=== PATIENT | male | born 1955 | race Caucasian/White ===

== ENCOUNTER 2020-09-25 15:09 | Emergency (ER) | payer MEDICARE, BC, SELFPAY ==
[2020-09-25 15:37] VITALS: BP 161/89; PULSE 59; RESP 14; TEMP 36.3; O2SAT 96; BMI 38.0
[2020-09-25 15:54] VITALS: BP 156/84; PULSE 60; RESP 20; O2SAT 97
--- NOTE | 2020-09-25 15:56 | XRR_ITS ---
PROCEDURE INFORMATION: Exam: XR Chest, 1 View Exam date and time: 09/25/2020 4:11 PM Age: 65 years old Clinical indication: Chest pain; Type not specified; Prior surgery TECHNIQUE: Imaging protocol: XR of the chest Views: 1 view. COMPARISON: CR Chest 2 views* [id number] 01/24/2014 8:00 AM FINDINGS: Lungs: Low lung volumes are seen. The lungs are otherwise clear Pleural space: Unremarkable. No pleural effusion. No pneumothorax. Heart/Mediastinum: Unremarkable. No cardiomegaly. Bones/joints: Metallic sternotomy wires are in place. Other findings: No interval changes are seen compared to prior XR/XR chest 1V portable [id number] IMPRESSION: 1. No acute findings. 2. Low lung volumes 3. Metallic sternotomy wires are in place.
[2020-09-25 16:20] LABS: Basophils % 0.3 %; Eosinophils # 0.1 10^3/uL (0.0-0.8); Eosinophils % 1.4 %; Hematocrit 43.4 % (42.0-52.0); Hemoglobin 13.9 g/dL (11.7-16.6); Lymphocytes # 1.5 10^3/uL (0.8-4.8); Lymphocytes % 21.3 %; Mean Corpuscular Hemoglobin 29.3 pg (28.0-34.0); Mean Corpuscular Volume 91.6 fL (80-94); Mean Platelet Volume 10.1 fL (7.4-10.4); Monocytes # 0.5 10^3/uL (0.2-0.9); Monocytes % 7.1 %; Neutrophils % 69.6 %; Nucleated Red Blood Cells % 0 %; Platelet Count 267 10^3/cmm (130-400); Red Blood Count 4.74 10^6/uL (4.1-5.3); Red Cell Distribution Width 13.3 % (12.1-15.1); White Blood Count 6.9 10^3/uL (4.0-10.0)
[2020-09-25 16:34] LABS: Alanine Aminotransferase 20 U/L (0-41); Albumin Level 4.4 g/dL (3.5-5.2); Alkaline Phosphatase 92 IU/L (40-130); Aspartate Amino Transferase 16 U/L (0-40); Blood Urea Nitrogen 11 mg/dL (8-23); Calcium 9.2 mg/dL (8.5-10.5); Carbon Dioxide 25 mmol/L (22-29); Chloride 105 mmol/L (98-107); Glomerular Filtration Rate 112.8 mL/min (90-130); Glucose 86 mg/dL (65-115); Osmolality Calculated 289 mOsm/kg (285-295); Sodium 140 mmol/L (136-145); Total Bilirubin 0.3 mg/dL (0.15-1.2)
[2020-09-25 16:35] LABS: Troponin T (5th) Once 13 ng/L (0-15)
[2020-09-25 16:39] LABS: Anion Gap 14.5 (5-19); Potassium 4.5 mmol/L (3.5-5.1)
--- NOTE | 2020-09-25 16:48 | ED_ITS ---
HPI - Back Pain/Injury General: Chief Complaint: Back Pain/Injury Stated Complaint: BACK PAIN SIMILAR TO PRIOR EPISODE W/BLOCKAGE Time Seen by Provider: 09/25/20 15:45 Source: patient Mode of arrival: ambulatory Limitations: no limitations History of Present Illness: HPI Narrative: Patient presents emergency department with complaints of mild mid thoracic back pain off and on for a week. Has no pain at present. States it hurts worse with movement. Has no chest pain at all. No shortness of breath. He is only here because he states that 7 years ago he had a CABG and at that time all he had his back pain as well. MD elicited complaint: back pain Associated symptoms: Deny abdominal pain, fever(s), nausea or vomiting Review of Systems General: Reports: 10 or more systems reviewed and unremarkable except in HPI and below Const: Denies: fever(s) Eyes: Denies: change in vision ENMT: Denies: throat pain Card: Denies: chest pain Resp: Denies: dyspnea, productive cough or non-productive cough GI: Denies: abdominal pain, nausea or vomiting : Denies: flank pain Musc: Reports: back pain; Denies: neck pain Skin/Breast: Denies: rash PFSH ED PFSH: Medical History CAD (coronary artery disease) HTN (hypertension) Hyperlipidemia Surgical History Hx of CABG Social History Smoking and tobacco status: never smoked Alcohol intake: never Physical Exam Const: COMMON NORMALS: no acute distress, average body habitus, patient oriented x3, no limitations, healthy appearing, alert and well nourished HENMT: COMMON NORMALS: normocephalic, atraumatic, hearing grossly normal bilaterally, external ears normal, EAC's normal, TM's normal bilaterally, Normal external nose present, Normal nasal mucous membranes and turbinates present, moist oral mucous membranes, oropharynx normal, dentition normal and gingiva normal HEAD & SCALP: normocephalic and atraumatic NOSE: Normal external nose present and Normal nasal mucous membranes and turbinates present EXTERNAL EAR: Yes external ears normal EXTERNAL AUDITORY CANAL: EAC's normal TYMPANIC MEMBRANE: TM's normal bilaterally Eye: COMMON NORMALS: Equal, round and reactive pupils present, EOMs intact bilaterally, conjunctivae normal, no scleral icterus, no papilledema, normal visual escalante by confrontation and fundi normal bilaterally CONJUNCTIVA: Yes conjunctivae normal PUPIL: Yes Equal, round and reactive pupils present DIRECT OPHTHALMOSCOPY: Yes no papilledema and Yes fundi normal bilaterally Neck/C-Spine: COMMON NORMALS: full ROM, no lymphadenopathy, supple, no meningeal signs, Thyroid normal and No carotid bruits THYROID: Thyroid normal Chest: COMMONS NORMALS: normal inspection of the chest, normal palpation of entire chest wall, normal inspection of the breasts and normal palpation of the breasts Breast/axilla inspection: Yes normal inspection of the breasts BREAST/AXILLA PALPATION: Yes normal palpation of the breasts Resp: COMMON NORMALS: normal respiratory effort, No retractions, No use of accessory muscles, clear to auscultation bilaterally and percussion normal AUSCULTATION: clear to auscultation bilaterally PERCUSSION: percussion normal GI: COMMON NORMALS: Normal to inspection, nondistended, normoactive bowel sounds present, Soft to palpation, non-tender, No hepatosplenomegaly present, no masses and no bruits PALPATION: Yes Soft to palpation and Yes No hepatosplenomegaly present : COMMON NORMALS: Yes normal external exam, Yes Testes normal, Yes scrotum normal, Yes no scrotal swelling and Yes No hernias present Back/Pelvis: THORACIC SPINE/UPPER BACK: Yes pain with ROM (Patient with some very mild pain to mid thoracic paravertebral muscles with) Neuro: COMMON NORMALS: patient oriented x3 SENSORIUM/ORIENTATION: Yes alert MENINGEAL SIGNS: Yes no meningeal signs Course Vital Signs: Vital signs: Vital Signs Temperature 97.3 F L 09/25/20 15:37 Pulse Rate 60 09/25/20 15:54 Respiratory Rate 20 H 09/25/20 15:54 Blood Pressure 156/84 09/25/20 15:54 Pulse Oximetry 97 09/25/20 15:54 MDM - Back Pain/Injury MDM Narrative: Medical decision making narrative: Patient has no significant abnormalities noted on labs or imaging. He has no chest pain. Normal troponin. EKG shows only nonspecific ST and T wave changes. Chest x-ray shows a widened mediastinum but it is no different than previous chest x-ray from 2014. Patient is pain-free at present at rest and only has some mild pain is reproducible with movement. Do not believe patient's pain represents ACS at this time. Do not see an indication of life-threatening illness such as AMI, PE, dissection, pneumothorax, or other life-threatening illness. Lab Data: Labs: Lab Results 09/25/20 09/25/20 09/25/20 Range/Units 15:55 15:55 15:55 WBC 6.9 (4.0-10.0) 10^3/ uL RBC 4.74 (4.1-5.3) 10^6/u L Hgb 13.9 (11.7-16.6) g/dL Hct 43.4 (42.0-52.0) % MCV 91.6 (80-94) fL MCH 29.3 (28.0-34.0) pg MCHC 32.0 (30.0-36.0) g/dL RDW 13.3 (12.1-15.1) % Plt Count 267 (130-400) 10^3/c mm MPV 10.1 (7.4-10.4) fL Neut % (Auto) 69.6 % Lymph % (Auto) 21.3 % [place] % (Auto) 7.1 % Eos % (Auto) 1.4 % Baso % (Auto) 0.3 % Neut # (Auto) 4.80 (1.8-7.7) 10^3/u L Lymph # (Auto) 1.5 (0.8-4.8) 10^3/u L [place] # (Auto) 0.5 (0.2-0.9) 10^3/u L Eos # (Auto) 0.1 (0.0-0.8) 10^3/u L Baso # (Auto) 0.0 (0.0-0.1) 10^3/u L Nucleated RBC % (a uto) 0 % Nucleated RBCs # 0.0 /100WBC Sodium 140 (136-145) mmol/L Potassium 4.5 (3.5-5.1) mmol/L Chloride 105 (98-107) mmol/L Carbon Dioxide 25 (22-29) mmol/L Anion Gap 14.5 (5-19) BUN 11 (8-23) mg/dL Creatinine 0.7 (0.7-1.2) mg/dL GFR Calculation 112.8 (90-130) mL/min Glucose 86 (65-115) mg/dL Calculated Osmolal ity 289 (285-295) mOsm/k g Calcium 9.2 (8.5-10.5) mg/dL Total Bilirubin 0.3 (0.15-1.2) mg/dL AST 16 (0-40) U/L ALT 20 (0-41) U/L Alkaline Phosphata se 92 (40-130) IU/L Troponin T Gen 5 n g/L 13 (0-15) ng/L Total Protein 9.0 H (6.6-8.7) g/dL Albumin 4.4 (3.5-5.2) g/dL Globulin 4.6 (1.3-4.6) g/dL Discharge Plan Discharge Patient Disposition: Home Clinical Impression: Back pain Qualifiers: Back pain location: thoracic back pain Chronicity: acute Back pain laterality: unspecified Qualified Code(s): M54.6 - Pain in thoracic spine Condition: Stable Prescriptions: No Action nitroglycerin 0.4 mg tablet, sublingual 0.4 mg SUBLINGUAL Q5M PRN (Reason: Chest Pain) RF: 0 metoprolol succinate 25 mg tablet extended release 24 hr 25 mg PO BID Qty: 180 RF: 3 Ibuprofen PM 200-38 mg Tablet 2 tab PO PRN RF: 0 Adult Low Dose Aspirin 81 mg tablet,delayed release (DR/EC) 81 mg PO QAM RF: 0 simvastatin 20 mg tablet 20 mg PO QPM RF: 0 losartan 25 mg tablet 25 mg PO QAM RF: 0 Discharge Orders: Discharge ED (Routine); Ordered 09/25/20 Ordered By: Mykel Worrell Coding Level of Care Code ED Squaring Shear Operator for Josef Mckeon
[2020-09-25 16:59] VITALS: BP 144/65; PULSE 61; RESP 19; O2SAT 95
[2020-09-26 19:06] LABS: Globulin 2.5 g/dL (1.3-4.6); Total Protein 6.9 g/dL (6.6-8.7)
== END 2020-09-25 16:59 | disposition home or self-care (01) ==
PROVIDERS: Emergency Provider Emergency Medicine
DX: M54.6 Pain in thoracic spine (principal); Z79.82 Long term (current) use of aspirin; I25.10 Atherosclerotic heart disease of native coronary artery without angina pectoris; I10 Essential (primary) hypertension; E78.5 Hyperlipidemia, unspecified; Z95.1 Presence of aortocoronary bypass graft
CPT/HCPCS: 12345; 71045; 80053; 84484; 85025; 99282; 99283

== ENCOUNTER 2020-10-26 09:04 | Outpatient (CLI) | payer MEDICARE, BC, SELFPAY ==
[2020-10-26 09:12] VITALS: BMI 41.5
--- NOTE | 2020-10-26 09:13 | ECG_ITS ---
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 The perfusion scan will be documented separately. DATA: Baseline heart rate was 59 beats per minute. Baseline blood pressure was 158/90 millimeters of mercury. Target heart rate was 154. Maximum heart rate achieved was 88. which was 57 % of the predicted target heart rate. Maximum blood pressure was 165/90 millimeters of mercury. The reason for ending the test was completion of the protocol. The patient did not experience any symptoms. ELECTROCARDIOGRAM: BASELINE: Sinus rhythm. Normal axis. Otherwise, no ST-T changes suggestive of ischemia noted. No arrhythmia noted. EXERCISE: After Lexiscan injection, no ST-T changes suggestive of ischemic noted. No arrhythmia noted. CONCLUSION: Please note due to baseline abnormality of the EKG specificity and sensitivity of the EKG portion of LexiScan MIBI stress test will be low 1. EKG not suggestive of ischemia 2. Lexiscan injection unremarkable. 3. Perfusion scan will be documented separately. Electronically Signed On 10-26-2020 11:18:26 EMT P by ARELI WILKINSON [email or web address]
--- NOTE | 2020-10-26 09:13 | NMCV_ITS ---
NM chris perf SPECT r/s* [id number] Jerardo Fletcher Age: 65 Gender: M : 1955 Exam Date: 10/26/2020 10:22 Ordering Phys: Areli Wilkinson MD ([email or web address]) Technologist: REESE Maguire Exam Location: [facility] Indications: SHORTNESS OF BREATH STRESS TEST Please see separate stress test report in [facility] for full findings IMAGE PROTOCOL Rest/Stress 1 Lexiscan Day Radiopharmaceutical Dose (mCi) Administration Site Administered by Rest: Tc-99m 10.7 IV REESE Silva Sestamibi Stress:Tc-99m 32.6 IV REESE Silva Sestamibi Rest: 26-Oct-2020 60 Discovery 630 Stress: 26-Oct-2020 30 Discovery 630 0.4mg Lexiscan. Images obtained in supine and prone position. SPECT RESULTS Technical Quality: Excellent Raw Data Analysis: Normal Image Corrections: No attenuation or motion correction applied Summed Stress Score: 0 Summed Rest Score: 1 Summed Difference Score: 0 PERFUSION FINDINGS Small area of fixed perfusion defect surrounded by medium-sized area of moderate reversibility noted in basal to mid inferior wall suggestive of old myocardial infarction surrounded by medium-sized area of moderate ischemia possibly in RCA territory FUNCTIONAL RESULTS (calculated via Gated SPECT) Stress Image LV EF (%): 66 Stress EDV (mL):140 TID: 0.97 Stress ESV (mL):48 Rest Image LV EF (%): 66 FUNCTIONAL FINDINGS: Basal to mid inferior wall akinesis IMPRESSIONS Small area of full myocardial infarction surrounded by medium-sized area of moderate to severe reversibility noted in basal to mid inferior wall suggestive of possible lesion in the RCA territory. EKG segment will be documented separately. Areli Wilkinson MD (Electronically Signed) Final Date: 26 October 2020 19:46 S
[2020-10-26] MEDS: regadenoson 0.4 Mg/5 ml Syringe IVP (11:00)
[2020-10-26 11:08] VITALS: BP 165/80; PULSE 72
--- NOTE | 2020-10-26 12:00 | USCV_ITS ---
Chance Jerardo Age: 65 Gender: M : 1955 Exam Date: 10/26/2020 09:38 Ordering Phys: Areli Wilkinson MD Technologist: Kevin Morejon Exam Location[place] [facility] [place] Indication: CHESP PAIN BP: 146 / 63 HR: 59 Rhythm: Sinus Technical Quality: Fair MEASUREMENTS (Male / Female) Normal Values 2D ECHO LV Diastolic Diameter PLAX 4.9 cm 4.2 - 5.9 / 3.9 - 5.3 cm LV Systolic Diameter PLAX 3.6 cm IVS Diastolic Thickness 1.3 cm 0.6 - 1.0 / 0.6 - 0.9 cm IVS Systolic Thickness 1.4 cm LVPW Diastolic Thickness 1.2 cm 0.6 - 1.0 / 0.6 - 0.9 cm LVPW Systolic Thickness 1.4 cm LVOT Diameter 2.4 cm LV Ejection Fraction 2D Teich 51.7 % LA Diameter 4.4 cm LA Width 3.8 cm LA Height 5.8 cm RA Width 3.9 cm RA Height 4.2 cm Aorta at Sinotubular Diameter 3.7 cm M-MODE LV Diastolic Diameter MM 5.7 cm 4.2 - 5.9 / 3.9 - 5.3 cm LV Systolic Diameter MM 3.3 cm LV Ejection Fraction MM Teich 71.5 % IVS Diastolic Thickness MM 1.2 cm 0.6 - 1.0 / 0.6 - 0.9 cm IVS Systolic Thickness MM 1.6 cm LVPW Diastolic Thickness MM 1.2 cm 0.6 - 1.0 / 0.6 - 0.9 cm LVPW Systolic Thickness MM 2.3 cm RV Diastolic Diameter MM 1.8 cm Aortic Annulus Diameter 4.3 cm LA Ao Ratio MM 1.1 MV E Point Septal Separation 1.1 cm DOPPLER AV Peak Velocity 153.0 cm/s LVOT Peak Velocity 87.0 cm/s AV Area Cont Eq vti 2.3 cm squared AV Area Cont Eq pk 2.5 cm squared MV Area PHT 5.0 cm squared Mitral E to A Ratio 1.4 MV E' Velocity 53.0 cm/s Mitral E to MV E' Ratio 10.4 Mitral E to LV E' Lateral Ratio 9.7 Mitral E to LV E' Septal Ratio 11.3 TR Peak Velocity 108.0 cm/s TR Peak Gradient 4.7 mmHg Right Atrial Pressure 3.0 mmHg Pulmonary Artery Systolic Pressu 7.7 mmHg PV Peak Velocity 104.0 cm/s FINDINGS Left Ventricle Normal left ventricular cavity size. Normal left ventricular systolic function. No regional wall motion abnormalities. Left ventricular ejection fraction is estimated at 60 %. Grade II/IV diastolic dysfunction, moderately elevated filling pressures. Right Ventricle The right ventricle is normal in size and function. Right Atrium The right atrium is normal in size. Left Atrium The left atrium is normal in size. Mitral Valve Moderately thickened mitral valve. Moderate mitral annular calcification. No mitral valve stenosis. No mitral valve regurgitation. Aortic Valve Aortic valve sclerosis without stenosis or regurgitation. Tricuspid Valve Structurally normal tricuspid valve without significant stenosis or regurgitation. Pulmonary artery systolic pressure is normal. Pulmonic Valve Structurally normal pulmonic valve without significant stenosis. There is no pulmonic regurgitation. Pericardium Normal pericardium without effusion. Aorta Normal ascending aorta dimension. CONCLUSIONS 1-Normal left ventricular cavity size. Normal left ventricular systolic function. No regional wall motion abnormalities. Left ventricular ejection fraction is estimated at 60 %. Grade II/IV diastolic dysfunction, moderately elevated filling pressures. 2-Moderately thickened mitral valve. Moderate mitral annular calcification. No mitral valve stenosis. No mitral valve regurgitation. 3-Aortic valve sclerosis without stenosis or regurgitation. 4-There is no pericardial effusion. 5-Right atrial pressure is around 5 mm of mercury. 6-When compared to the prior echocardiogram dated 11 Jan 2014, left ventricle ejection fraction has improved from mildly reduced 50% to normal 60% now. Areli Wilkinson MD (Electronically Signed) Final Date: 26 October 2020 20:05 S
== END 2020-10-26 09:05 | disposition home or self-care (01) ==
LOC: CDL 09:04
PROVIDERS: Visit Provider Internal Medicine Cardiovascular Disease
DX: I25.10 Atherosclerotic heart disease of native coronary artery without angina pectoris (principal); R06.02 Shortness of breath; R07.9 Chest pain, unspecified; I08.0 Rheumatic disorders of both mitral and aortic valves; I21.9 Acute myocardial infarction, unspecified
CPT/HCPCS: 78452; 93017; 93306; A9500; J2785

== ENCOUNTER → 2021-05-31 08:52 | Outpatient (BNVA) | payer MEDICARE, BC, SELFPAY | PROVIDERS: Referring Provider Internal Medicine Cardiovascular Disease; Visit Provider Internal Medicine Cardiovascular Disease | DX: Z01.818 Encounter for other preprocedural examination (principal); I25.10 Atherosclerotic heart disease of native coronary artery without angina pectoris; R06.02 Shortness of breath; Z20.822 Contact with and (suspected) exposure to COVID-19 | CPT/HCPCS: 80048; 85025; 85610; 87635 ==

== ENCOUNTER 2021-06-06 07:55 | Outpatient (CLI) | payer MEDICARE, BC, SELFPAY ==
[2021-06-06] VITALS (49 sets, daily range): BP systolic 124–209; BP diastolic 65–110; PULSE 65–100; RESP 5–36; TEMP 36.2–36.7; O2SAT 92–97; BMI 42.7
--- NOTE | 2021-06-06 07:30 | XACV_ITS ---
Ht: 170 cm Wt: 124 kg BSA: 2.48 m2 Gender: Male : 1955 Any Known Allergies: No known allergies Exam Priority: Routine Procedure(s): Procedure Description: Diagnostic procedure Procedure Description: PCI procedure Procedure Description: Venous Graft Catheterization Procedure Description: REIS Graft Catheterization Procedure Description: Drug Eluting Coronary Stent Procedure Description: PTCA Procedure Description: Miscellaneous Procedure Description: ACT Procedure Description: Coronary Angiography Jaja GRAYSON; Diagnostic Cath Status: Elective Diagnostic Findings * Left Main has no disease. * Proximal Left Anterior Descending: total occlusion, PATRICIO: 0 flow. * Left Internal Mammary Artery to Mid Left Anterior Descending graft: patent. * Proximal Right Coronary Artery to Distal Right Coronary Artery: total occlusion, PATRICIO: 0 flow. * Proximal Circumflex: severe 90% stenosis, PATRICIO: 3 flow. * 1st Diagonal: severe 90% stenosis, PATRICIO: 3 flow. * Ascending Aorta to 1st Diagonal graft: patent. * Ascending Aorta to Right Posterior AV graft: patent. * Ascending Aorta to Second Obtuse Marginal Branch Segment graft: severe 90% stenosis, PATRICIO: 3 flow. * Four grafts visualized. * Coronary angiography shows right dominance. PCI Status: Urgent PCI Indication: NSTE - ACS Interventional Findings * Ascending Aorta to Second Obtuse Marginal Branch Segment graft: 90% stenosis treated with a Drug Eluting Stent. 0% residual stenosis, PATRICIO: 3 flow. Conclusions 1. There is total occlusion coronary artery disease with three vessel disease. 2. Four coronary grafts visualized: three grafts patent, and one graft treated. 3. Patient has prior CABG. 4. Ascending Aorta to Second Obtuse Marginal Branch Segment graft was treated with a Drug Eluting Stent. Recommendations * 1-Return to inpatient for close monitoring and routine cath care2-Risk factor modification for secondary prevention3-Statin and aspirin 81 mg life--long, if tolerated4-Patient was pre-loaded with 600 mg of Plavix, continue Plavix 75mg p.o. daily for at least one year. We will assess at the end of one year again to continue if further or not5-Continue optimal medical management6-Follow up with Dr. Wilkinson in four weeks and your primary care in 10 days. Diagnostic RX Recommendation: PCI w/o planned CABG Pressures Phase:Rest AO : 190 / 96 ( 133 ) @ 9:00:00 AM 166 / 88 ( 118 ) @ 9:07:00 AM 163 / 92 ( 123 ) @ 9:10:00 AM 165 / 82 ( 115 ) @ 9:19:00 AM 197 / 125 ( 122 ) @ 9:29:00 AM 167 / 90 ( 122 ) @ 9:40:00 AM Clinical Evaluation EBL: 5mL-10mL Procedural Details Procedure Consent Obtained. Pre-Procedure Time Out. Identified patient by full name and date of as verbalized by the patient/guarantor. Does the consent match the physician's order: Yes. Accurate & Complete Informed Consent: Yes. Inpatient/Outpatient History & Physical on Chart: Yes. If H&P is completed, is and addenduem needed: No; If yes, is the addendum complete: N/A. Visualize and Verify Site with Patient/Guarantor: N/A. Relevant Radiology Images available: N/A. Pre-op teaching completed and patient verbalized understanding. The risks, benefits, and alternatives of sedation and/or procedure were discussed by physician. The patient agrees to continue. Travis Schulte will be food equipment service technician and Triny Hager RN will be circulating nurse for procedure. Procedure started. 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 Chest Pain Symptom Assessment: Typical Angina Symptoms. Cardiovascular Instability: No. Correct patient, site and procedure confirmed by cath team. PERRLA. Strong, equal hand telecommunications officer bilaterally. Lungs clear x 5 lobes. IV Site on Arrival: 22 gauge in the right hand. IV Fluids: 0.9% NaCl at KVO. 0 mL infused prior to rags laborer. Pre Procedural Pulses: bilateral dorsalis pedis was 2+. Pre Procedural Pulses: bilateral posterior tibial was 2+. Pre Procedural Pulses: bilateral radial was 2+. Oxygen started at 2liters/min via nasal canula. bilateral groins was prepped with chloroprep then draped in the usual sterile fashion. Baseline sample Acquired. HR: 63 BPM. Physician notified. Equipment: 6F - Femoral. Cardiac Cath Pack. ACIST Manifold Kit Model BT 2000. Heparinized Saline (2 units/mL), 1000 mL bag. Kit, Micropuncture. Physician arrived. Physician scrubbed in. Immediate Pre-Procedure Time Out. Correct Patient: Yes; Correct Procedure: Yes; Correct Site: Yes; Correct Patient Position: Yes; Correct Supplies: Yes; Dried Flammable Prep: Yes; Blood Products Available: N/A;. Lidocaine 1% infiltrated to the right groin. Arterial access obtained with micropuncture set. A 5 indian JL4 catheter in over wire. Multiple views taken of left coronary artery. Catheter removed over the standard wire. A 5 indian JR4 catheter in over wire. SVG's to RCA visualized and patent. SVG's to Circumflex visualized. SVG's to Diaganol visualized and patent. Catheter redirected to the REIS. REIS to LAD visualized. Catheter removed over the standard wire. 6 indian JR 4 SH guide catheter was inserted over the wire. Inventory is Vobi XT .014 190cm Str. Guidewire. [employer] guidewire was advanced through the guide catheter to lesion in the SVG to Circ. AP pads applied to pt. Inflation Number : 1 Avel Alonso TIM 3.0X38 JUDE -Lot Number# [id number] exp date 12/28/2023 was prepped and advanced across the Aorta Left -> Mid CX. The stent was deployed at 16 SAMI for 0:39 seconds. Stent balloon out over wire. ACT drawn. Results 180 seconds. Therapeutic limits - pre-heparin administration 90-150 seconds and monitoring heparin during a vascular procedure >250 seconds. Family updated. Inflation Number : 2 A JUSTUS Alonso TIM 3.0X12 JUDE -Lot Number# [id number] exp date 03/06/2024 was prepped and advanced across the Aorta Left -> Mid CX. The stent was deployed at 16 SAMI for 0:18 seconds. Inflation number: 3 The stent balloon was then re-inflated across the Aorta Left -> Mid CX to 14 SAMI for 0:09 seconds. Stent balloon out over wire. Results checked. Wire out. Guide catheter out. Physician scrubbed out. A Suture was successful obtaining hemostatsis at the Right Femoral artery insertion site. Sheath(s) sutured into position with 2-0 silk and sterile 4x4's and Op-site applied over the site. No oozing or signs and symptoms of hematoma noted. Arterial sheath flushed and connected to tranducer and pressure bag with heparinized saline. Post Procedure: Pulses reassessed and unchanged. PERRLA. Strong, equal hand telecommunications officer bilaterally. No VTE prophylaxis required. Medication's Wasted: Other = hydralazine 10 mg. Post-op diagnosis: significant stenosis of SVG to circ mid body. Complications: none. Medication's Wasted: Lidocaine 1% = 10 mL. Medication's Wasted: Nitro = 49.6 mg. Total IV fluids: 103 mL. PCI Indication: New Onset Angina. Estimated blood loss: 5mL-10mL. Procedure completed. Patient transferred by bed to 1st floor. Vital chart was stopped. Access Site Site: Right Femoral artery Sheath Size: 6 Fr Hemostasis Method: Suture Hemostasis Success: Successful Procedure Medications Start: 9:47 AM Stop: 9:47 AM Medication: Versed Amount: 1 mg Route: I.V. Start: 9:47 AM Stop: 9:47 AM Medication: Fentanyl Amount: 50 mcg Route: I.V. Start: 9:50 AM Stop: 9:50 AM Medication: Versed Amount: 1 mg Route: I.V. Start: 10:15 AM Stop: 10:15 AM Medication: Heparin Amount: 8000 units Route: I.V. Start: 10:19 AM Stop: 10:19 AM Medication: Aggrastat 12.5 mg/250 mL Amount: 62.5 ml Route: I.V. bolus Start: 10:23 AM Stop: 10:23 AM Medication: Aggrastat 12.5 mg/250 mL Amount: 22.5 ml/hr Route: I.V. drip Start: 10:27 AM Stop: 10:27 AM Medication: Fentanyl Amount: 50 mcg Route: I.V. Start: 10:28 AM Stop: 10:28 AM Medication: Cardene Amount: 500 mcg Route: I.C. Start: 10:30 AM Stop: 10:30 AM Medication: Versed Amount: 1 mg Route: I.V. Start: 10:33 AM Stop: 10:33 AM Medication: Cardene Amount: 500 mcg Route: I.C. Start: 10:33 AM Stop: 10:33 AM Medication: Fentanyl Amount: 50 mcg Route: I.V. Start: 10:37 AM Stop: 10:37 AM Medication: Heparin Amount: 4000 units Route: I.V. Start: 10:37 AM Stop: 10:37 AM Medication: Versed Amount: 1 mg Route: I.V. Start: 10:37 AM Stop: 10:37 AM Medication: Fentanyl Amount: 50 mcg Route: I.V. Start: 10:40 AM Stop: 10:40 AM Medication: Nitrogylcerin Amount: 400 mcg Route: I.C. Start: 10:46 AM Stop: 10:46 AM Medication: Hydralazine Amount: 10 mg Route: I.V. Start: 10:47 AM Stop: 10:47 AM Medication: Nitrogylcerin Amount: 1 Route: Topical Start: 10:48 AM Stop: 10:48 AM Medication: Plavix Amount: 600 mg Route: P.O. I, the attending physician, have reviewed and verified all procedure medications. Yes, all medications given per verbal order History/Risk Factors Hypertension: Yes Dyslipidemia: Yes Peripheral Arterial Disease (PAD): No Myocardial Infarction ([place]): No Obesity: Yes Renal Disease: No Tobacco Use: Never Prior Interventions PCI: No CABG: Yes Valve Surgery: No Report Signatures Finalized by Areli Wilkinson MD on 06/20/2021 08:55 PM
[2021-06-06] MEDS: diphenhydrAMINE 50 mg Capsule PO (08:12)
--- NOTE | 2021-06-06 09:32 | P.HPUD_ITS ---
Surgery/Procedure H&P Update DATE OF PROCEDURE: June 06, 2021 DATE H&P PERFORMED: 05/17/21 H&P UPDATE INFORMATION: I have reviewed H&P completed within last 30 days, I have examined patient prior to procedure and No changes to prior documentation PREOP DIAGNOSIS: Abnormal stress test, chest pain, worsening of symptoms shortness of breath PLANNED PROCEDURE: Operation Date: 06/06/21 08:30 Proposed Procedures p Cardiac Catheterization(Left) - Areli Wilkinson MD PATIENT REASSESSED PRIOR TO SEDATION, WITH NO CHANGE NOTED: Yes PHYSICAL EXAM: alert, oriented x 3 and clear to auscultation bilaterally AIRWAY EVAL/ANESTHESIA PLAN: ASA II, Risks, benefits & alternatives of sedation and/or procedure discussed and Patient agrees to continue as planned ADDITIONAL INFORMATION: Patient has been explained all risk benefit patient has been explained risk for conscious sedation, stroke major minor bleed urgent emergent bypass surgery urgent emergent vascular surgery hematoma pseudoaneurysm infection etc. patient understood it and would like to proceed w ith it. He is a candidate for DAPT
--- NOTE | 2021-06-06 11:34 | ECG_ITS ---
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 Measurements Intervals [place] Rate: 85 P: 7 WV: 167 QRS: -40 QRSD: 133 T: 85 QT: 393 QTc: 469 Interpretive Statements SINUS RHYTHM WITH OCCASIONAL SUPRAVENTRICULAR PREMATURE COMPLEXES LEFT AXIS DEVIATION [QRS AXIS < -30] INTRAVENTRICULAR CONDUCTION DELAY [130+ ms QRS DURATION] LEFT VENTRICULAR HYPERTROPHY AND ST-T CHANGE [VOLTAGE CRITERIA PLUS ST/T ABNORMALITY] LATERAL MYOCARDIAL INFARCTION , PROBABLY RECENT [40+ ms Q WAVE AND/OR ST/T ABNORMALITY IN I/aVL/V5/V6] ACUTE TN No previous ECG available for comparison Electronically Signed On 06-06-2021 17:29:24 CDT by Judit Matos M.D. [id number]
[2021-06-06] MEDS: nitroglycerin drip 50 MG/250 ML PREMIX IV (12:03)
[2021-06-06] MEDS: morphine 4 mg/mL SDV 1 mL 2 MG IVP (12:09)
--- NOTE | 2021-06-06 12:11 | PC.NURSE ---
patient reports pain in chest through to back 8/10 blood pressure 186/96 209/110 196/107 post procedure EKG obtained notified Dr chaidez instructions start mitchell Gtt give 2 mg IVP morphine patient reports pain is getting better rated 5/10 after interventions
[2021-06-06 13:38] LABS: Partial Thromboplastin Time 135.1 SECONDS (23.9-36.7)
[2021-06-06 16:55] LABS: Partial Thromboplastin Time 30.7 SECONDS (23.9-36.7)
[2021-06-06] MEDS: atorvastatin 40 mg Tablet 20 MG PO (17:09)
[2021-06-06] MEDS: isosorbide mononitrate ER 30 mg Tablet 15 MG PO (17:09)
[2021-06-06] MEDS: metoprolol succinate ER (24 HR) 25 mg Tablet PO (17:10)
--- NOTE | 2021-06-06 17:30 | PC.NURSE ---
Sheath removed from Right groin at this time pressure held for 20 min no hematoma formation patient tolerated well
--- NOTE | 2021-06-06 18:14 | PC.NURSE ---
Shift Note Frequent safety and comfort rounds continue. Orders and/or nursing care completed as indicated. Patient monitored for response to intervention and treatment(s). Education provided includes post angio care instructions. Patient and/or sales donor recruitment representative verbalized understanding. Will continue to monitor.
[2021-06-06] MEDS: alum-mag-hydroxide-sime 30 mL UDC PO (22:22)
[2021-06-06] MEDS: temazepam 15 mg Capsule PO (23:54)
[2021-06-07] VITALS (33 sets, daily range): BP systolic 104–179; BP diastolic 56–113; PULSE 65–86; RESP 16–29; TEMP 36.7; O2SAT 95
[2021-06-07] MEDS: alum-mag-hydroxide-sime 30 mL UDC PO (04:03)
[2021-06-07 05:00] LABS: Basophils % 0.2 %; Eosinophils % 0.2 %; Hematocrit 41.4 % (42.0-52.0); Hemoglobin 13.4 g/dL (11.7-16.6); Lymphocytes # 0.9 10^3/uL (0.8-4.8); Lymphocytes % 7.2 %; Mean Corpuscular HGB Conc 32.4 g/dL (30.0-36.0); Mean Corpuscular Hemoglobin 28.9 pg (28.0-34.0); Mean Corpuscular Volume 89.2 fl (80-94); Mean Platelet Volume 9.7 fL (7.4-10.4); Monocytes # 0.6 10^3/uL (0.2-0.9); Monocytes % 5.1 %; Neutrophils # 10.72 10^3/uL (1.8-7.7); Nucleated Red Blood Cells % 0 %; Platelet Count 306 10^3/cmm (130-400); Red Blood Count 4.64 10^6/uL (4.1-5.3); White Blood Count 12.3 10^3/uL (4.0-10.0)
[2021-06-07 05:26] LABS: Anion Gap 14.8 (5-19); Blood Urea Nitrogen 11 mg/dL (8-23); Carbon Dioxide 22 mmol/L (22-29); Chloride 103 mmol/L (98-107); Glomerular Filtration Rate 134.4 mL/min (90-130); Glucose 120 mg/dL (65-115); Osmolality Calculated 283 mOsm/kg (285-295); Potassium 3.8 mmol/L (3.5-5.1); Sodium 136 mmol/L (136-145)
[2021-06-07] MEDS: losartan 50 mg Tablet 25 MG PO (08:02)
[2021-06-07] MEDS: isosorbide mononitrate ER 30 mg Tablet 15 MG PO (08:02)
[2021-06-07] MEDS: aspirin 81 mg EC Tablet PO (08:02)
[2021-06-07] MEDS: clopidogrel 75 mg Tablet PO (08:02)
[2021-06-07] MEDS: metoprolol succinate ER (24 HR) 25 mg Tablet PO (08:02)
--- NOTE | 2021-06-07 09:18 | PC.CHAP ---
Pastoral Care Encounter/Spiritual Assessment Type of Contact [] Declined senior applications engineer visit [] Patient/Family/Request visit [] Outpatient visit [] Follow-up visit [] Physician referral [] Code/Alert [x] Routine visit [] Staff referral [] Actively dying [] Patient sleeping [] Family support [] [] Out of room [] Palliative care [] [] Receiving care in room [] Pre-surgical visit [] Trauma [] Long length of stay [] ICU visit [] Other: Relational/Emotional Strength [] Patient feels connected with others/family/visitors/staff [] Distress [] Loneliness/isolation [] Abandonment Spirituality of Patient [] Person of Tere [] Attends Druze of their Tere [] Believes in Prayer [] Reads Bible or Taoism materials [] There are Spiritual issues to be addressed Head Of Sales And Marketing Interventions [x] Prayer [x] Active listening [x] Non-anxious presence [x] Spiritual/emotional support [] Crisis/trauma care [] Spiritual counseling [] Bereavement support [] Provided bereavement packet [] Provided Bible/devotional materials [] Provided toy/stuffed animal, coloring book to patient or family member [] Provided Communion [] Anointing/[place] [] Salvation [x] Completed spiritual assessment [] Other: Impact on Illness or Injury [] Angry [] Fearful [] Anxious [] Often cries [] Exhaustion [] Unable to work [] Unable to attend orthodox [] Unable to walk/stand [] Unable to read [] Unable to drive [] Unable to eat/drink [] Unable to sleep [] Unable to be with family [] Patient intubated [] Other: Summary patient setting up in chair... comfortable -retired about 3 yrs ago... working on things around the house.. feeling better this AM Time spent with patient 10 min
--- NOTE | 2021-06-07 15:30 | PM.SDS ---
Short Stay Summary Providers Date of Admit/Discharge: 06/07/21 Attending Provider: Areli Wilkinson MD Primary Care Provider: DOCTOR NOT ON FILE Chief Complaint: [id number] [id number] HPI History of Present Illness Jerardo Fletcher is a 66 year old male past medical history significant for hypertension hyperlipidemia coronary artery bypass surgery obesity for worsening of chest pain shortness of breath and abnormal stress test despite optimization of medicine underwent coronary and graft angiogram. He was noted to have severe triple-vessel disease with REIS patent to LAD, SVG to RCA was patent however SVG to circumflex had mid long 80% severe stenosis with high plaque burden. It was treated with 2 overlapping drug-eluting stent excellent angiographic result with good flow was achieved. Patient was recovered overnight after percutaneous angioplasty. His blood pressure remained moderately elevated which was controlled with nitro drip. He complained of some chest pain post PCI which was resolved. His groin looks good he is moving around and stable from a cardiovascular perspective. Is already feeling much better. He is being discharged home today. He will be following up with cardiology in 7 days with Ms. Gladys Estrella and myself in 6 to 8 weeks. Patient has been instructed regarding post PCI care. Home Meds/Allergies Home Medications and Allergies Home Medications Medication Instructions Recorded Confirmed Type nitroglycerin 0.4 mg sublingual 0.4 mg SUBLINGUAL Q5M PRN 02/18/20 06/06/21 History tablet Ibuprofen PM 2 tab PO PRN 09/25/20 06/06/21 History isosorbide mononitrate 15 mg PO BID 06/06/21 06/06/21 History Allergies Allergy/AdvReac Type Severity Reaction Status Date / Time No Known Allergies Allergy Verified 06/06/21 08:55 PFSH Acute PFSH: Medical History CAD (coronary artery disease) HTN (hypertension) Hyperlipidemia Surgical History Hx of CABG Social History Smoking and tobacco status: never smoked Alcohol intake: never Dietary Habits: Current diet type/program: regular Caffeine: Yes Exercise: What type of physical activity do you participate in?: none Safety: Seatbelt use: always Home Safety: Working smoke detector in home: No Fire extinguisher in home: No Carbon monoxide detector in home: No Personal Safety: Do you feel safe at home: Yes Vitals/I&O/Wt Last Vital Signs Temp 98.0 F 06/07/21 03:28 Pulse 82 06/07/21 12:15 Resp 17 06/07/21 12:15 BP 140/74 06/07/21 12:15 Pulse Ox 95 06/07/21 03:28 06/07/21 06/07/21 06/07/21 06:59 14:59 22:59 Intake Total 68.625 / 254.725 267.35 / 267.35 Output Total 175 / 1350 Balance -106.375 / -1095.275 267.35 / 267.35 Weight last 48 hrs Weight 273 lb Physical Exam Narrative: EXAM NARRATIVE: GENERAL: Patient is alert, awake and oriented x3. NECK: No jugular vein distension. HEENT: No cyanosis. No icterus. No pallor. HEART: Regular S1 and S2. No murmur, rub or gallop. LUNGS: Clear to auscultate bilaterally. ABDOMEN: Soft, nontender and nondistended. Positive bowel sounds. No guarding, rebound or tenderness. CENTRAL NERVOUS SYSTEM: Grossly nonfocal. EXTREMITIES: Lower extremities without edema bilaterally. Const: COMMON NORMALS: alert Resp: COMMON NORMALS: clear to auscultation bilaterally AUSCULTATION: clear to auscultation bilaterally Neuro: SENSORIUM/ORIENTATION: Yes alert Hospital Course Admission Diagnoses As above SSS Data Data Completed and Pending: Pending at discharge Category Date Time Status SOFTWARE QUALITY ASSURANCE ENGINEER request for service Routin e Exams 06/06/21 07:30 Taken Discharge Plan Discharge Patient Disposition: Home Prescriptions: New clopidogrel 75 mg Tablet 75 mg PO DAILY Qty: 90 RF: 4 aspirin 81 mg tablet,chewable 81 mg PO DAILY Qty: 90 RF: 4 Continued nitroglycerin 0.4 mg tablet, sublingual 0.4 mg SUBLINGUAL Q5M PRN (Reason: Chest Pain) RF: 0 metoprolol succinate 25 mg tablet extended release 24 hr 25 mg PO BID Qty: 180 RF: 3 Adult Low Dose Aspirin 81 mg tablet,delayed release (DR/EC) 81 mg PO QAM Qty: 90 RF: 3 simvastatin 20 mg tablet 20 mg PO QPM Qty: 90 RF: 3 losartan 25 mg tablet See Rx Instructions .ROUTE .COMPLEX Qty: 90 RF: 0 Ibuprofen PM 200-38 mg Tablet 2 tab PO PRN RF: 0 isosorbide mononitrate 30 mg tablet extended release 24 hr 15 mg PO BID RF: 0 Discharge Orders: Discharge Order (Routine); Ordered 06/07/21 Ordered By: Areli Wilkinson Referrals: Areli Wilkinson MD [Physician] - 6 Weeks (You have a follow up appointment with Dr. Wilkinson on August 15 12:00 pm If you can not keep this appointment please call heart care services to reschedual. Your appointment on June 27 has been cancelled ) Gladys Estrella FNP [Nurse Practitioner] - 4-7 days (You have a follow up appointment with Gladys Estrella NP on June 14 at 10:45 am if you can not keep this appointment please call heart care services to reschedual.) Diet: Cardiac Activity: Increase activity as tolerated Patient Instructions: Clopidogrel (By mouth), Coronary Angioplasty (DC), Left Heart Catheterization (DC), Post Angiogram Home Care Instructions Activity Restrictions/Additional Instructions: Follow-up with Ms. Gladys Estrella cardiology nurse practitioner in 7 days. Follow-up with Dr. Wilkinson in 6 to 8 weeks. Discharge Date/Time: 06/07/21 17:00 Attestations Medical Necessity Statement*: Patient may can be discharged home Time Spent in Patient Care*: less than 30 min Specific Discharge Activities: Specific discharge activities: educating patient Quality Metrics Clinical Quality Measures: During this hospital stay, did patient experience: None Coding Level of Care Code Established Pt Acute Transportation Consultant for Dannyg Fwd Patient Type Established History Detailed Exam Detailed Medical Decision Making Moderate Complexity
--- NOTE | 2021-06-07 16:07 | PC.PHAR ---
Spoke with nurse regarding aspirin duplicate dosing... nurse to clarify with physician prior to discharge
--- NOTE | 2021-06-07 16:14 | PC.NURSE ---
Shift Note Frequent safety and comfort rounds continue. Orders and/or nursing care completed as indicated. Patient monitored for response to intervention and treatment(s). Education provided includes post angio home care and follow up. Patient and/or congressional representative verbalized understanding. Will continue to monitor.
== END 2021-06-07 17:00 | disposition home or self-care (01) ==
LOC: CCL 08:01 → CSU 11:06
PROVIDERS: Visit Provider Internal Medicine Cardiovascular Disease
DX: I25.10 Atherosclerotic heart disease of native coronary artery without angina pectoris (principal); R07.9 Chest pain, unspecified; R06.02 Shortness of breath; R94.39 Abnormal result of other cardiovascular function study; I10 Essential (primary) hypertension; E78.5 Hyperlipidemia, unspecified; Z95.1 Presence of aortocoronary bypass graft; E66.9 Obesity, unspecified; Z68.41 Body mass index [BMI] 40.0-44.9, adult
CPT/HCPCS: 36415; 80048; 85025; 85347; 85730; 93005; 93459; C1725; C1769; C1874; C1887; C1894; C9600; J0360; J1644; J2250; J2270; J3010; J3246; J3490; J7030; Q0163; Q9967

== ENCOUNTER → 2021-06-14 11:34 | Outpatient (BNVA) | payer MEDICARE, BC, SELFPAY | PROVIDERS: Visit Provider Nurse Practitioner Family | DX: I25.10 Atherosclerotic heart disease of native coronary artery without angina pectoris (principal) | CPT/HCPCS: 80048 ==